=== PATIENT | male | born 1980 ===

== ENCOUNTER → 2024-04-06 | Outpatient (CLI) | payer OTHER ==
[~2024-04-06] MED LIST: LACT10SO10 PO; LEVAHFA IH; METO-325 PO; NAPR-1025 PO
== END | disposition home or self-care (01) ==
LOC: TELEHEALTH 13:49
PROVIDERS: ATTEND Internal Medicine
DX: I10 Essential (primary) hypertension (principal); G89.29 Other chronic pain; J45.909 Unspecified asthma, uncomplicated; I77.89 Other specified disorders of arteries and arterioles
CPT/HCPCS: Q3014